=== PATIENT | female | born 1975 | race Two or more races ===

== ENCOUNTER → 2024-08-10 | Outpatient (CLI) | payer BC ==
[2024-08-10 10:34] LABS: Basophils # (auto) 0 10 ^3/uL (0-0.2); Basophils % (auto) 0.6 % (0.0-2.0); Eosinophils # (auto) 0.2 10 ^3/uL (0-0.8); Eosinophils % (auto) 2.6 % (0.0-7.0); Hematocrit 42.7 % (36.0-46.0); Hemoglobin 14.1 g/dL (12.2-16.2); Lymphocytes # (auto) 1.9 10 ^3/uL (0.4-5.4); Lymphocytes % (auto) 24.8 % (10.0-50.0); Mean Corpuscular Hemoglobin 28.2 pg (28.0-32.0); Mean Corpuscular Hgb Conc. 33.1 g/dL (32.0-36.0); Mean Corpuscular Volume 85.2 fL (80.0-100.0); Monocytes # (auto) 0.5 10 ^3/uL (0-1.3); Monocytes % (auto) 6.7 % (0.0-12.0); Neutrophils # (auto) 4.9 10 ^3/uL (1.6-8.6); Neutrophils % (auto) 65.3 % (37.0-80.0); Nucleated Red Blood Cells % 0.1 %; Platelet Count (auto) 424 10^3/uL (140-450); Red Cell Distribution Width 14.6 % (11.8-14.3); White Blood Cell 7.6 10^3/uL (4.4-10.8)
[2024-08-10 10:58] LABS: Alanine Aminotransferase 35 U/L (7-40); Albumin 4.4 g/dL (3.2-4.8); Alkaline Phosphatase 73 U/L (46-116); Anion Gap 9 (5-15); Aspartate Aminotransferase 29 U/L (13-40); BUN/Creatinine Ratio 14.5 (10.0-20.0); Blood Urea Nitrogen 12 mg/dL (9-23); Calcium 9.4 mg/dL (8.7-10.4); Carbon Dioxide 23 mmol/L (20-31); Chloride 107 mmol/L (98-107); Glucose 93 mg/dL (74-106); Potassium 3.9 mmol/L (3.5-5.1); Sodium 139 mmol/L (136-145); Triglycerides 99 mg/dL (< 150)
[2024-08-10 10:59] LABS: Total Protein 7.3 g/dL (5.7-8.2)
[2024-08-10 11:00] LABS: Bilirubin, Total 0.3 mg/dL (0.2-1.0); Cholesterol 213 mg/dL (< 200); HDL Cholesterol 66 mg/dL (40-59); LDL Cholesterol 153 mg/dL (< 100)
[2024-08-10 11:18] LABS: % Iron Saturation 18.1 % (15-50)
[2024-08-10 12:16] LABS: Folate (Folic Acid) 14.64 ng/mL (>5.38); Follicle Stimulating Hormone 6.87 IU/L (SEE BELOW); Leuteinizing Hormone 4.3 IU/L
[2024-08-10 12:17] LABS: Free T4 (Free Thyroxine) 0.86 ng/dL (0.89-1.76); Prolactin 3.76 ng/mL (2.8-29.2); T3 Total 1.46 ng/mL (0.60-1.81)
[2024-08-11 08:06] LABS: Estradiol 27.2 pg/mL (.); T3 Uptake 21 % (24-39); Testosterone 26 ng/dL (4-50); Thyroid Peroxidase (TPO) Ab 10 IU/mL (0-34); Thyroxine (T4) 7.2 ug/dL (4.5-12.0)
[2024-08-12 15:06] LABS: QuantiFERON-TB Gold Plus Negative (Negative)
[2024-08-13 04:06] LABS: Thyroglobulin Antibody <1.0 IU/mL (0.0-0.9)
== END | disposition home or self-care (01) ==
LOC: LAB 09:28
PROVIDERS: ATTEND Nurse Practitioner Women's Health
DX: Z01.419 Encounter for gynecological examination (general) (routine) without abnormal findings (principal); E28.2 Polycystic ovarian syndrome
CPT/HCPCS: 36415; 80053; 80061; 82306; 82607; 82670; 82728; 82746; 83001; 83002; 83036; 83540; 83550; 84146; 84402; 84403; 84436; 84439; 84443; 84479; 84480; 85025; 86376; 86800

== ENCOUNTER → 2025-02-24 | Outpatient (CLI) | payer BC ==
[~2025-02-24] VITALS: Ht 154.9 cm; Wt 104.3 kg
[~2025-02-24] MED LIST: FERR1TAB31 PO; IBUP-1453 PO
[2025-02-24 14:12] LABS: Hematocrit 44.0 % (36.0-46.0); Hemoglobin 14.7 g/dL (12.2-16.2); Mean Corpuscular Hemoglobin 28.9 pg (28.0-32.0); Mean Corpuscular Volume 86.8 fL (80.0-100.0); Nucleated Red Blood Cells % 0.0 %; Urine Protein, UAD Negative (Negative)
[2025-02-24 14:24] LABS: INR 0.94 (0.9-1.15); Partial Thromboplastin Time 28.4 SEC (24.5-34.5); Prothrombin Time 10.0 sec (9.3-11.8)
[2025-02-24 14:31] LABS: Alanine Aminotransferase 23 U/L (7-40); Alkaline Phosphatase 76 U/L (46-116); Anion Gap 11 (5-15); BUN/Creatinine Ratio 13.2 (10.0-20.0); Blood Urea Nitrogen 12 mg/dL (9-23); Calcium 9.8 mg/dL (8.7-10.4); Carbon Dioxide 24 mmol/L (20-31); Chloride 105 mmol/L (98-107); Potassium 4.1 mmol/L (3.5-5.1); Sodium 140 mmol/L (136-145); Total Protein 7.5 g/dL (5.7-8.2)
[2025-02-24 14:32] LABS: Albumin 4.7 g/dL (3.2-4.8); Bilirubin, Total 0.4 mg/dL (0.2-1.0)
[2025-02-24 14:33] LABS: Glucose 106 mg/dL (74-106)
== END | disposition home or self-care (01) ==
LOC: LAB 02-17 13:33 → EDSTATUS 02-28 14:00 → EEVIPCON 02-28 14:00
PROVIDERS: ATTEND Podiatrist
DX: Z01.812 Encounter for preprocedural laboratory examination (principal); S93.402A Sprain of unspecified ligament of left ankle, initial encounter; S82.892A Other fracture of left lower leg, initial encounter for closed fracture; X58.XXXA Exposure to other specified factors, initial encounter; Y93.89 Activity, other specified; Y92.89 Other specified places as the place of occurrence of the external cause; Y99.8 Other external cause status
CPT/HCPCS: 36415; 80053; 81003; 84702; 85025; 85610; 85730

== ENCOUNTER 2025-06-29 09:45 | Day surgery (SDC) | payer OTHER ==
[2025-06-22 12:20] LABS: Hematocrit 40.6 % (36.0-46.0); Hemoglobin 13.7 g/dL (12.2-16.2); Mean Corpuscular Hemoglobin 28.6 pg (28.0-32.0); Mean Corpuscular Volume 84.8 fL (80.0-100.0); Nucleated Red Blood Cells % 0.2 %
[2025-06-22 12:32] LABS: Urine Protein, UAD TRACE (Negative)
[2025-06-22 12:35] LABS: INR 0.97 (0.9-1.15); Partial Thromboplastin Time 27.9 SEC (24.5-34.5); Prothrombin Time 10.3 sec (9.3-11.8)
[2025-06-22 13:02] LABS: Albumin 4.2 g/dL (3.2-4.8); Alkaline Phosphatase 78 U/L (46-116); Anion Gap 11 (5-15); BUN/Creatinine Ratio 13.1 (10.0-20.0); Bilirubin, Total 0.4 mg/dL (0.2-1.0); Blood Urea Nitrogen 11 mg/dL (9-23); Calcium 9.1 mg/dL (8.7-10.4); Carbon Dioxide 24 mmol/L (20-31); Chloride 106 mmol/L (98-107); Glucose 99 mg/dL (74-106); Potassium 3.9 mmol/L (3.5-5.1); Sodium 141 mmol/L (136-145); Total Protein 7.3 g/dL (5.7-8.2)
[2025-06-22 13:12] LABS: Alanine Aminotransferase 43 U/L (7-40)
[~2025-06-29] VITALS: Ht 154.9 cm; Wt 104.3 kg
[2025-06-29] MEDS ORDERED: ceFAZolin 2 GM/D5W50ml 50 ML IV ONE (10:32)
--- NOTE | 2025-06-29 11:12 | DVHOP2 ---
Operative Report - 2 Report Details Date: 06/29/25 Preop Diagnosis: 1. Left fibula distal fracture 2. Left ankle sprain 3. Left ankle instability 4. Left ankle pain Postop Diagnosis: Same as preop Surgeon: Anh Oliveros MD Anesthesiologist: See anesthesia Anesthesia: General Implant: Arthrex FiberTak x2 Consent: The patient was informed of the risks and benefits of the procedure. These include but are not limited to complications of anesthesia, postoperative infection, incomplete relief of symptoms, recurrence of symptoms, damage to blood vessels, nerves and tendons, deep venous thrombosis, pulmonary embolism and possible need for repeat surgery in the future. Complications: None Estimated Blood Loss: Minimal Fluids: See anesthesia Findings: Consistent with diagnosis Indications for Surgery: Worsening ankle pain Name of Procedure Performed 1. Left distal fibula fracture fragment excision (69335) 2. Left ankle brostrom procedure (11393) 3. Left ankle arthrotomy (37908) Procedure Details Procedure Details: PRE-PROCEDURE INFORMATION: In the pre-op holding area, the extremity to be operated on was clearly marked and the patient verified correct laterality of the marking. The patient was transferred to the OR table and placed in a supine position. A timeout was performed in which identification of the correct patient, procedure, location, and materials was done. The left foot and leg were prepped and draped in normal sterile fashion. The foot and leg were exsanguinated and the thigh tourniquet was inflated to 250 mmHg. DESCRIPTION OF PROCEDURE: Attention was directed to the left lateral ankle where a curvilinear longitudinal incision was made just anterior to the distal fibula. This incision was deepened through blunt and sharp dissection to the level of both the fibula and the talus so that both were visualized. Care was taken throughout dissection to avoid damage to neurovascular structures. An arthrotomy of the ankle joint was performed revealing normal appearing joint fluid. It was noted that the anterior talofibular ligament was attenuated and needed repair. 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 Using a rongeur and sharp instrumentation, the distal fragment of the fibula was excised. The talar dome was inspected and noted to be free of osteochondral lesions. Utilizing a periosteal elevator, the periosteum of the anterior distal fibula was reflected in preparation for the placement of the soft tissue anchors. A soft tissue anchor was then placed proximal and distal. The knotless fibertak anchors were then used to recreate the ATFL and CFL ligaments. Prior to the procedure being performed, there was a positive anterior drawer sign. After, this procedure, there was a negative anterior drawer. The capsule was then oversewn with 2-0 Vicryl. The wound was irrigated copiously with normal saline and closed in layers All surgical wounds were irrigated copiously with saline and closed in layers with the aforementioned suture material. A dry sterile dressing was placed on the surgical extremity. The patient was placed in a cam boot POSTOPERATIVE INFORMATION: The patient tolerated the above noted procedure and anesthesia well and was transferred to the PACU with vital signs stable, and vascular status intact with capillary refill intact to all digits. Postoperative instructions reviewed in detail with the patient with written instructions provided. Patient will return to clinic in approximately 10-14 days for first postoperative visit. Patient has the number of the clinic and was instructed to call prior to that time should any problems, questions, or concerns arise. Condition Good Disposition Home Visit Coding Podiatry Date of Service if different f: Jun 29, 2025 Billing Provider: ANH OLIVEROS DPM Podiatry Common Visit Codes: PROCEDURE ONLY ANH OLIVEROS DPM Jun 29, 2025 11:12
[2025-06-29] MEDS ORDERED: fentaNYL CITRATE 100 MCG/2 ML VL ONE (11:55)
[2025-06-29] MEDS ORDERED: PROPOFOL 10 MG/ML 20 ML IV ONE (11:55)
[2025-06-29] MEDS ORDERED: ONDANSETRON HCL 4 MG/2 ML VIAL ONE (12:15)
[2025-06-29] MEDS ORDERED: MEPERIDINE HCL (25 MG/ML) 1ML VIAL ONE (12:19)
[2025-06-29] MEDS: BUPIVACAINE 0.5% P/F INJ 10 ML VIAL ONE (12:34)
[2025-06-29 12:51] VITALS: PULSE 99; RESP 13; TEMP 98.3; O2SAT 91
[2025-06-29] MEDS ORDERED: MEPERIDINE HCL (25 MG/ML) 1ML VIAL IV PRN (13:00)
[2025-06-29] MEDS: ACETAMINOPHEN IV 1000 MG/100ML (10MG/ML) IV PRN (13:00)
[2025-06-29] MEDS ORDERED: ACETAMINOPHEN IV 100 ML IV ONE (13:00)
[2025-06-29] MEDS ORDERED: HYDROmorphone HCL 2 MG/ML VL/or syr IV PRN (13:00)
[2025-06-29 13:08] VITALS: PULSE 88; RESP 14; O2SAT 98
[2025-06-29] MEDS: ONDANSETRON HCL 4 MG/2 ML VIAL IV PRN (13:10)
[2025-06-29 13:40] VITALS: BP 114/67; PULSE 72; RESP 17; O2SAT 99
== END 2025-06-29 13:48 | disposition home or self-care (01) ==
LOC: SUR 09:45
PROVIDERS: ATTEND Podiatrist
DX: M25.372 Other instability, left ankle (principal); S93.492A Sprain of other ligament of left ankle, initial encounter; S82.832K Other fracture of upper and lower end of left fibula, subsequent encounter for closed fracture with nonunion; I10 Essential (primary) hypertension; E66.01 Morbid (severe) obesity due to excess calories; Z90.49 Acquired absence of other specified parts of digestive tract; Z68.41 Body mass index [BMI] 40.0-44.9, adult; X58.XXXD Exposure to other specified factors, subsequent encounter
CPT/HCPCS: 27641; 27698; 36415; 80053; 81001; 81025; 85025; 85610; 85730; C1713; J0690; J1100; J2175; J2405; J2704; J3010; J3490; J0131